=== PATIENT | female | born 1985 | race African-American/Black ===

== ENCOUNTER 2019-04-25 23:56 | Emergency (ER) | payer BC ==
[~2019-04-25] VITALS: Ht 172.7 cm; Wt 122.5 kg
[2019-04-26 00:35] LABS: BASO # 0.1 x10^3/uL (0.0-0.2); BASO % 1 % (0-3); EOS # 0.4 x10^3/uL (0.0-0.7); EOS % 4 % (0-3); HEMATOCRIT 33.4 % (36.0-47.0); HEMOGLOBIN 10.9 g/dL (12.0-15.5); LYMPH # 2.9 x10^3/uL (1.0-4.8); LYMPH % 26 % (24-48); MEAN CORPUSCULAR HEMOGLOBIN 26 pg (25-35); MEAN CORPUSCULAR HGB CONC 33 g/dL (31-37); MEAN CORPUSCULAR VOLUME 79 fL (79-100); MONO # 0.8 x10^3/uL (0.0-1.1); MONO % 7 % (0-9); NEUT # 6.9 x10^3/uL (1.8-7.7); NEUT % 62 % (31-73); PLATELET COUNT 267 x10^3/uL (140-400); RED BLOOD COUNT 4.23 x10^6/uL (3.50-5.40); RED CELL DISTRIBUTION WIDTH 16.1 % (11.5-14.5); WHITE BLOOD COUNT 11.1 x10^3/uL (4.0-11.0)
[2019-04-26 00:44] LABS: CALCIUM 9.2 mg/dL (8.5-10.1); CREATININE 0.9 mg/dL (0.6-1.0); GFR 71.3; POTASSIUM 3.3 mmol/L (3.5-5.1)
[2019-04-26 00:46] LABS: PREG TEST PT QUAL NEGATIVE (NEG)
[2019-04-26 00:54] LABS: ALBUMIN 3.5 g/dL (3.4-5.0); ALBUMIN/GLOBULIN RATIO 0.9 (1.0-1.7); TOTAL BILIRUBIN 0.3 mg/dL (0.2-1.0); TOTAL PROTEIN 7.5 g/dL (6.4-8.2)
[2019-04-26 01:41] VITALS: BP 135/98
--- NOTE | 2019-04-26 01:43 | PHYS DOC ---
Past Medical History Past Medical History: Anxiety, Arthritis, Depression, Hypertension, Ovarian Cyst Past Surgical History: Other Additional Past Surgical Histo: UMB HERNIA REPAIR Alcohol Use: None Drug Use: None Adult General Chief Complaint Chief Complaint: CHEST WALL PAIN HPI HPI Patient is a 33 year old [place] female who presents with chest heaviness, left arm numbness with exertion today while at work. Patient works other symptoms on [employer]. She states she has had left arm numbness while walking up 2 flights of stairs. Arm numbness with persist for 20-30 minutes with at times he would be associated with chest heaviness. Chest heaviness resolved with rest. No fever, cough, sore throat. Reports mild dyspnea with exertion. No leg pain or swelling. No other acute symptoms or complaints.[] Review of Systems Review of Systems View of symptoms as per history of present illness. All other review symptoms are negative All other systems were reviewed and found to be within normal limits, except as documented in this note. Allergies Allergies Allergies Coded Allergies Type Severity Reaction Last Updated Verified morphine Allergy Unknown 04/26/19 Yes Physical Exam Physical Exam Constitutional: Well developed, well nourished, no acute distress, non-toxic appearance. [] HENT: Normocephalic, atraumatic, bilateral external ears normal, oropharynx moist, no oral exudates, nose normal. [] Eyes: PERRLA, EOMI, conjunctiva normal, no discharge. [] Neck: Normal range of motion, no tenderness, supple, no stridor. [] Cardiovascular:Heart rate regular rhythm, no murmur [] Lungs & Thorax: Bilateral breath sounds clear to auscultation [] Abdomen: Bowel sounds normal, soft, no tenderness. [] Skin: Warm, dry, no erythema, no rash. [] Back: No tenderness, no CVA tenderness. [] Extremities: No tenderness, no cyanosis, no clubbing, ROM intact, no edema. [] Neurologic: Alert and oriented X 3, normal motor function, normal sensory function, no focal deficits noted. [] Psychologic: Affect normal, judgement normal, mood normal. [] Current Patient Data Vital Signs Vital Signs Date Time Temp Pulse Resp B/P (MAP) Pulse Ox O2 Delivery O2 Flow Rate FiO2 04/26/19 01:41 84 19 135/98 (110) 98 Room Air 04/25/19 23:56 98.1 98.1 Lab Values Laboratory Tests Test 04/26/19 00:25 White Blood Count 11.1 x10^3/uL (4.0-11.0) H Red Blood Count 4.23 x10^6/uL (3.50-5.40) Hemoglobin 10.9 g/dL (12.0-15.5) L Hematocrit 33.4 % (36.0-47.0) L Mean Corpuscular Volume 79 fL (79-100) Mean Corpuscular Hemoglobin 26 pg (25-35) Mean Corpuscular Hemoglobin Concent 33 g/dL (31-37) Red Cell Distribution Width 16.1 % (11.5-14.5) H Platelet Count 267 x10^3/uL (140-400) Neutrophils (%) (Auto) 62 % (31-73) Lymphocytes (%) (Auto) 26 % (24-48) Monocytes (%) (Auto) 7 % (0-9) Eosinophils (%) (Auto) 4 % (0-3) H Basophils (%) (Auto) 1 % (0-3) Neutrophils # (Auto) 6.9 x10^3/uL (1.8-7.7) Lymphocytes # (Auto) 2.9 x10^3/uL (1.0-4.8) Monocytes # (Auto) 0.8 x10^3/uL (0.0-1.1) Eosinophils # (Auto) 0.4 x10^3/uL (0.0-0.7) Basophils # (Auto) 0.1 x10^3/uL (0.0-0.2) Sodium Level 140 mmol/L (136-145) Potassium Level 3.3 mmol/L (3.5-5.1) L Chloride Level 103 mmol/L (98-107) Carbon Dioxide Level 28 mmol/L (21-32) Anion Gap 9 (6-14) Blood Urea Nitrogen 16 mg/dL (7-20) Creatinine 0.9 mg/dL (0.6-1.0) Estimated GFR (Cockcroft-Gault) 71.3 BUN/Creatinine Ratio 18 (6-20) Glucose Level 103 mg/dL (70-99) H Calcium Level 9.2 mg/dL (8.5-10.1) Total Bilirubin 0.3 mg/dL (0.2-1.0) Aspartate Amino Transferase (AST) 38 U/L (15-37) H Alanine Aminotransferase (ALT) 55 U/L (14-59) Alkaline Phosphatase 141 U/L (46-116) H Troponin I Quantitative < 0.017 ng/mL (0.000-0.055) Total Protein 7.5 g/dL (6.4-8.2) Albumin 3.5 g/dL (3.4-5.0) Albumin/Globulin Ratio 0.9 (1.0-1.7) L Serum Test, Qualitative Negative (NEG) Laboratory Tests 04/26/19 00:25 Laboratory Tests 04/26/19 00:25 EKG EKG [EKG: Reviewed] Radiology/Procedures Radiology/Procedures [Chest x-ray: Reviewed] Course & Med Decision Making Course & Med Decision Making Pertinent Labs and Imaging studies reviewed. (See chart for details) [Exertional chest pain with nonspecific EKG abnormalities. Aspirin given prior to ED arrival with resolution of symptoms. Troponin negative. Symptoms concerning for coronary syndrome. Recommendations are for hospital admission for further evaluation and stress test. Patient declines hospital admission. She verbalizes understanding she is at risk of missed diagnosis, and disability declining hospital admission but prefers to return to work and follow-up with her PCP. She is encouraged to return to the hospital should her symptoms return or she changes her mind regarding hospitalizations. Patient verbalizes understanding that she is been discharged from the emergency department AGAINST MEDICAL ADVICE and that she should return to the ED immediately if symptoms return or if she changes her mind regarding hospital admission.] Dragon Disclaimer Dragon Disclaimer This electronic medical record was generated, in whole or in part, using a voice recognition dictation system. Departure Departure Impression: Primary Impression: Chest pain Disposition: AGAINST MEDICAL ADVICE Condition: Referrals: NO PCP (PCP) Patient Instructions: Chest Pain (Nonspecific), [id number] Additional Instructions: Take daily 2 daily baby strength aspirin, avoid all strenuous physical activity and follow-up with your PCP later today for reevaluation and coordination of additional outpatient testing. If your symptoms return or if you change your mind regarding hospital admission, return to the ED immediately CHETAN KEENE DO Apr 26, 2019 01:42
--- NOTE | 2019-04-26 04:38 | RAD ---
Chest AP portable at 12:26 AM: Reason for examination: Chest pain. The heart size is normal. Mediastinum is unremarkable. Lung oliveros are clear. There is some elevation of the right hemidiaphragm. No acute bony abnormalities are seen. Impression: Elevation of the right hemidiaphragm. No acute cardiopulmonary disease. Electronically signed by: Stephani Vieira MD (04/26/2019 4:34 AM) [id number]
--- NOTE | 2019-04-26 06:23 | EKG ---
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
== END 2019-04-26 02:15 | disposition left against medical advice (07) ==
LOC: ER 23:56
DX: R07.89 Other chest pain (principal); R06.00 Dyspnea, unspecified; R20.0 Anesthesia of skin; F41.9 Anxiety disorder, unspecified; M19.90 Unspecified osteoarthritis, unspecified site; F32.9 Major depressive disorder, single episode, unspecified; I10 Essential (primary) hypertension; Z98.890 Other specified postprocedural states; Z88.6 Allergy status to analgesic agent
CPT/HCPCS: 36415; 71045; 80053; 84484; 84703; 85025; 93005; 99285

== ENCOUNTER 2019-05-12 03:19 | Emergency (ER) | payer BC ==
[~2019-05-12] VITALS: Ht 172.7 cm; Wt 270.0 kg
[2019-05-12] MEDS ORDERED: NITROGLYCERIN SUBLINGUAL 0.4 MG BOTTLE OF 25. SL PRN (03:30)
--- NOTE | 2019-05-12 03:40 | PHYS DOC ---
Past Medical History Past Medical History: Anxiety, Arthritis, Depression, Hypertension, Ovarian Cyst Past Surgical History: Other Additional Past Surgical Histo: UMB HERNIA REPAIR Alcohol Use: None Drug Use: None Adult General Chief Complaint Chief Complaint: CHEST PAIN HPI HPI 33-year-old female presents to the emergency Department complaints of chest pain. Patient describes as off and on since midnight around Thursday. She states is worse at work, she believes is secondary to stress. She as well describes running out of blood pressure medications. She denies any cough, nausea, vomiting, abdominal pain, headache or visual change. She describes the pain as dull. She states it's reproducible on examination. Worse at work, better when not at work. Review of Systems Review of Systems Constitutional: Denies fever or chills [] Respiratory: Denies cough or shortness of breath [] Cardiovascular: No additional information not addressed in HPI [] GI: Denies abdominal pain, nausea, vomiting, bloody stools or diarrhea [] Musculoskeletal: Denies back pain or joint pain [] Integument: Denies rash or skin lesions [] Neurologic: Denies headache, focal weakness or sensory changes [] All other systems were reviewed and found to be within normal limits, except as documented in this note. Current Medications Current Medications Current Medications Medications (Trade) Dose Ordered Sig/[facility] Start Time Stop Time Status Last Admin Dose Admin Aspirin (Children'S Aspirin) 324 mg 1X ONCE 05/12/19 04:00 05/12/19 04:01 DC 05/12/19 03:57 324 MG Ketorolac Tromethamine (Toradol Im) 60 mg 1X ONCE 05/12/19 04:00 05/12/19 04:01 DC 05/12/19 03:58 60 MG Nitroglycerin (Nitrostat) 0.4 mg PRN Q5MIN PRN 05/12/19 03:30 05/13/19 03:29 05/12/19 03:58 0.4 MG Allergies Allergies Allergies Coded Allergies Type Severity Reaction Last Updated Verified morphine Allergy Intermediate 05/12/19 Yes Physical Exam Physical Exam Constitutional: Well developed, well nourished, no acute distress, non-toxic appearance. [] HENT: Normocephalic, atraumatic, bilateral external ears normal, oropharynx moist, no oral exudates, nose normal. [] Eyes: PERRLA, EOMI, conjunctiva normal, no discharge. [] Cardiovascular:Heart rate regular rhythm, no murmur [] Lungs & Thorax: Bilateral breath sounds clear to auscultation [] Abdomen: Bowel sounds normal, soft, no tenderness, no masses, no pulsatile masses. [] Skin: Warm, dry, no erythema, no rash. [] Back: No tenderness, no CVA tenderness. [] Extremities: No tenderness, no edema. [] Neurologic: Alert and oriented X 3, no focal deficits noted. [] Psychologic: Affect normal, judgement normal, mood normal. [] Current Patient Data Vital Signs Vital Signs Date Time Temp Pulse Resp B/P (MAP) Pulse Ox O2 Delivery O2 Flow Rate FiO2 05/12/19 03:58 71 131/92 05/12/19 03:19 98.6 16 99 98.6 Lab Values Laboratory Tests Test 05/12/19 04:01 05/12/19 04:04 POC Urine HCG, Qualitative Hcg negative (Negative) White Blood Count 10.9 x10^3/uL (4.0-11.0) Red Blood Count 4.27 x10^6/uL (3.50-5.40) Hemoglobin 11.2 g/dL (12.0-15.5) L Hematocrit 34.1 % (36.0-47.0) L Mean Corpuscular Volume 80 fL (79-100) Mean Corpuscular Hemoglobin 26 pg (25-35) Mean Corpuscular Hemoglobin Concent 33 g/dL (31-37) Red Cell Distribution Width 16.2 % (11.5-14.5) H Platelet Count 250 x10^3/uL (140-400) Neutrophils (%) (Auto) 64 % (31-73) Lymphocytes (%) (Auto) 27 % (24-48) Monocytes (%) (Auto) 6 % (0-9) Eosinophils (%) (Auto) 2 % (0-3) Basophils (%) (Auto) 1 % (0-3) Neutrophils # (Auto) 6.9 x10^3/uL (1.8-7.7) Lymphocytes # (Auto) 3.0 x10^3/uL (1.0-4.8) Monocytes # (Auto) 0.7 x10^3/uL (0.0-1.1) Eosinophils # (Auto) 0.3 x10^3/uL (0.0-0.7) Basophils # (Auto) 0.1 x10^3/uL (0.0-0.2) Sodium Level 141 mmol/L (136-145) Potassium Level 3.4 mmol/L (3.5-5.1) L Chloride Level 104 mmol/L (98-107) Carbon Dioxide Level 25 mmol/L (21-32) Anion Gap 12 (6-14) Blood Urea Nitrogen 14 mg/dL (7-20) Creatinine 0.8 mg/dL (0.6-1.0) Estimated GFR (Cockcroft-Gault) 98.8 BUN/Creatinine Ratio 18 (6-20) Glucose Level 99 mg/dL (70-99) Calcium Level 8.9 mg/dL (8.5-10.1) Magnesium Level 2.1 mg/dL (1.8-2.4) Total Bilirubin 0.3 mg/dL (0.2-1.0) Aspartate Amino Transferase (AST) 64 U/L (15-37) H Alanine Aminotransferase (ALT) 88 U/L (14-59) H Alkaline Phosphatase 155 U/L (46-116) H Troponin I Quantitative < 0.017 ng/mL (0.000-0.055) FW-Vvv-C-Type Natriuretic Peptide 28 pg/mL (0-124) Total Protein 7.5 g/dL (6.4-8.2) Albumin 3.3 g/dL (3.4-5.0) L Albumin/Globulin Ratio 0.8 (1.0-1.7) L Laboratory Tests 05/12/19 04:04 Laboratory Tests 05/12/19 04:04 EKG EKG interpretation time 0349, NSR, no stemi, heart rate 68, LAD[] Radiology/Procedures Radiology/Procedures [facility] [address] [place], [place] [id number] IMAGING REPORT Signed PATIENT: MARIO KATHLEEN LACCOUNT: [id number] : 1985 LOCATION: ER AGE: 33 SEX: F EXAM STATUS: REG ER ORD. PHYSICIAN: STEPHANI ANDERSEN MD REASON: chest pain PROCEDURE: PORTABLE CHEST 1V EXAM: AP View of the chest DATE: 05/12/2019 3:28 AM INDICATION: Chest pain COMPARISON: 04/26/2019 FINDINGS: The heart is upper limits normal. Mediastinal and hilar contours are stable. No focal parenchymal airspace opacity. No pleural effusion or pneumothorax. IMPRESSION: 1. No radiographic evidence for acute cardiopulmonary process. Electronically signed by: Billy Ashley MD (05/12/2019 4:29 AM) [facility] DICTATED and SIGNED BY: BILLY ASHLEY MD DATE: 05/12/19 0429 [] Course & Med Decision Making Course & Med Decision Making Pertinent Labs and Imaging studies reviewed. (See chart for details) []33-year-old female presents to the emergency Department complaints of chest pain. Patient describes as off and on since midnight around Thursday. She states is worse at work, she believes is secondary to stress. She as well describes running out of blood pressure medications. She denies any cough, nausea, vomi ting, abdominal pain, headache or visual change. She describes the pain as dull. She states it's reproducible on examination. Worse at work, better when not at work. Labs reviewed without acute findings CXR negative for acute process Refill of BP medications offered however patient states she does not know what she takes Return precautions provided and discussed This appears to be more situational chest pain - associated with work Dragon Disclaimer Dragon Disclaimer This electronic medical record was generated, in whole or in part, using a voice recognition dictation system. Departure Departure Impression: Primary Impression: Chest wall pain Disposition: HOME, SELF-CARE Condition: IMPROVED Referrals: NO PCP (PCP) Patient Instructions: Chest Wall Pain, [id number] Additional Instructions: Recommend follow up with PCP 3 - 5 days Return to the ER with worsening symptoms, intractable pain, fever, altered mental status Tylenol/Motrin as needed for pain Chest xray and labs negative for acute process It appears chest pain is situational - associated with work stress STEPHANI ANDERSEN MD May 12, 2019 03:40
[2019-05-12] MEDS ORDERED: ASPIRIN CHEWABLE 81 MG TABLET. PO ONE (04:00)
[2019-05-12] MEDS ORDERED: KETOROLAC 60 MG/2 ML VIAL. IM ONE (04:00)
[2019-05-12 04:14] LABS: BASO # 0.1 x10^3/uL (0.0-0.2); BASO % 1 % (0-3); EOS # 0.3 x10^3/uL (0.0-0.7); EOS % 2 % (0-3); HEMATOCRIT 34.1 % (36.0-47.0); HEMOGLOBIN 11.2 g/dL (12.0-15.5); LYMPH % 27 % (24-48); MEAN CORPUSCULAR HEMOGLOBIN 26 pg (25-35); MEAN CORPUSCULAR HGB CONC 33 g/dL (31-37); MEAN CORPUSCULAR VOLUME 80 fL (79-100); MONO # 0.7 x10^3/uL (0.0-1.1); MONO % 6 % (0-9); NEUT # 6.9 x10^3/uL (1.8-7.7); NEUT % 64 % (31-73); PLATELET COUNT 250 x10^3/uL (140-400); RED BLOOD COUNT 4.27 x10^6/uL (3.50-5.40); RED CELL DISTRIBUTION WIDTH 16.2 % (11.5-14.5); WHITE BLOOD COUNT 10.9 x10^3/uL (4.0-11.0)
[2019-05-12 04:24] LABS: CALCIUM 8.9 mg/dL (8.5-10.1); CREATININE 0.8 mg/dL (0.6-1.0); GFR 98.8; POTASSIUM 3.4 mmol/L (3.5-5.1)
[2019-05-12 04:28] LABS: ALBUMIN 3.3 g/dL (3.4-5.0); ALBUMIN/GLOBULIN RATIO 0.8 (1.0-1.7); MAGNESIUM 2.1 mg/dL (1.8-2.4); TOTAL BILIRUBIN 0.3 mg/dL (0.2-1.0); TOTAL PROTEIN 7.5 g/dL (6.4-8.2)
--- NOTE | 2019-05-12 04:32 | RAD ---
EXAM: AP View of the chest DATE: 05/12/2019 3:28 AM INDICATION: Chest pain COMPARISON: 04/26/2019 FINDINGS: The heart is upper limits normal. Mediastinal and hilar contours are stable. No focal parenchymal airspace opacity. No pleural effusion or pneumothorax. IMPRESSION: 1. No radiographic evidence for acute cardiopulmonary process. Electronically signed by: Billy Ashley MD (05/12/2019 4:29 AM) [facility]
[2019-05-12 04:35] VITALS: BP 127/65
--- NOTE | 2019-05-12 06:44 | EKG ---
[facility] [address] [place] [address] Test Date: 2019-05-12 Test Time: 03:45:14 Pat Name: MARIO KATHLEEN Department: Room: Gender: F Camera Person: : 1985 Requested By: STEPHANI ANDERSEN Order Number: [id number] Reading MD: Measurements Intervals Wise Rate: 68 P: 34 MO: 170 QRS: -4 QRSD: 92 T: 14 QT: 410 QTc: 441 Interpretive Statements SINUS RHYTHM LEFTWARD AXIS OTHERWISE NORMAL ECG RI6.01 No previous ECG available for comparison
== END 2019-05-12 04:55 | disposition home or self-care (01) ==
LOC: ER 03:19
DX: R07.89 Other chest pain (principal); F41.9 Anxiety disorder, unspecified; M19.90 Unspecified osteoarthritis, unspecified site; F32.9 Major depressive disorder, single episode, unspecified; I10 Essential (primary) hypertension; Z98.890 Other specified postprocedural states; Z79.82 Long term (current) use of aspirin; Z88.6 Allergy status to analgesic agent
CPT/HCPCS: 36415; 71045; 80053; 81025; 83735; 83880; 84484; 85025; 93005; 96372; 99285; J1885